=== PATIENT | female | born 1970 | race Caucasian/White ===

== ENCOUNTER 2017-08-05 08:21 | Emergency (ER) | payer OTHER ==
[~2017-08-05] VITALS: Ht 160 cm; Wt 65.9 kg
[2017-08-05 09:46] VITALS: BP 114/64
== END 2017-08-05 09:54 | disposition home or self-care (01) ==
LOC: EMS 08:22
DX: J06.9 Acute upper respiratory infection, unspecified (principal); R03.0 Elevated blood-pressure reading, without diagnosis of hypertension
CPT/HCPCS: 99283